=== PATIENT | female | born 1975 | race Hispanic/Latino ===

== ENCOUNTER 2020-05-02 11:03 | Emergency (ER) | payer OTHER ==
[~2020-05-02] VITALS: Ht 165.1 cm; Wt 78.0 kg
[~2020-05-02 11:03] MED LIST: BENTYL10 MG PO; CIPRO500 MG PO; LEVAQUIN500 MG PO; METOCLOPRAMIDE10 MG PO; MOTRIN800 MG PO; PREDNISONE10 MG PO; PRILOSEC OTC20 MG PO; ULTRAM50 MG PO; VICODIN 5-5001 EACH PO; ZOFRAN ODT4 MG SL
[2020-05-02] MEDS ORDERED: SODIUM CHLORIDE 0.9% 1000ML 1,000 ML IV STA (11:19)
[2020-05-02] MEDS ORDERED: KETOROLAC TROMETHAMINE 30 MG/ML VIAL IV STA (11:19)
[2020-05-02 11:52] LABS: BASOPHILS % 0.4 % (0.0-1.0); EOSINOPHILS # (AUTO) 0.1 (0.0-0.4); EOSINOPHILS % 1.3 % (0.0-6.0); HEMATOCRIT 40.2 % (34.2-44.1); LYMPHOCYTES # (AUTO) 1.8 (1.0-3.2); LYMPHOCYTES % 25.6 % (18.0-39.1); MEAN CORPUSCULAR HGB CONC 32.3 g/dL (31-35); MEAN CORPUSCULAR VOLUME 83.4 fL (81-99); MONOCYTES # (AUTO) 0.4 (0.2-0.8); MONOCYTES % 5.6 % (4.4-11.3); NEUTROPHILS # (AUTO) 4.7 (2.1-6.9); PLATELET COUNT 164 x10e3/uL (140-360); RED BLOOD COUNT 4.82 x10e6/uL (3.6-5.1); RED CELL DISTRIBUTION WIDTH 14.6 % (11.7-14.4)
[2020-05-02 12:07] LABS: INR 0.91; PROTHROMBIN TIME 12.8 seconds (11.9-14.5)
[2020-05-02 12:08] LABS: PARTIAL THROMBOPLASTIN TIME 29.4 seconds (23.8-35.5)
[2020-05-02 12:15] LABS: ALANINE AMINOTRANSFERASE 16 IU/L (0-55); ALBUMIN 3.6 g/dL (3.5-5.0); ALBUMIN/GLOBULIN RATIO 0.8 (0.8-2.0); ALKALINE PHOSPHATASE 85 IU/L (40-150); ANION GAP 12.8 mmol/L (8-16); BLOOD UREA NITROGEN 15 mg/dL (7-26); BUN/CREATININE RATIO 18 (6-25); CARBON DIOXIDE 24 mmol/L (22-29); CHLORIDE 106 mmol/L (98-107); CREATINE KINASE 46 IU/L (29-168); CREATININE, SERUM 0.84 mg/dL (0.57-1.11); EST GLOMERULAR FILTRATION RATE > 60 ML/MIN (60-); GLUCOSE 106 mg/dL (74-118); POTASSIUM 3.8 mmol/L (3.5-5.1); SODIUM 139 mmol/L (136-145)
--- NOTE | 2020-05-02 12:16 | Diagnostic Imaging Report ---
EXAMINATION: CHEST SINGLE (PORTABLE) INDICATION: Chest pain COMPARISON: None FINDINGS: LINES/TUBES:None LUNGS:The lungs are well-inflated. No focal consolidation or pulmonary edema. PLEURA:No pleural effusion or pneumothorax. MEDIASTINUM:The cardiomediastinal silhouette appears normal in size and shape. BONES/SOFT TISSUES:No acute osseous injury. ABDOMEN:No free air under the diaphragm. IMPRESSION: No focal pneumonia or pulmonary edema. Signed by: Barbara Lopes MD on 05/02/2020 12:12 PM
--- NOTE | 2020-05-02 12:23 | Emergency Department Note ---
History of Present Illnes History of Present Illness Chief Complaint: Chest Pain History of Present Illness This is a 45 year old female PATIENT IN FROM HOME WITH COMPLAINTS OF LE FT SIDED CHEST PAIN X 5 DAYS, INITIALLY WAS INTERMITTENT NOW CONSTANT X 2 DAYS; STATES PAIN WORSE WITH MOVEMENT, MORE PAINFUL WITH PALPATION. PATIENT ALERT AND ORIENTED, RESP EVEN AND NONLABORED, APPEARS IN NO DISTRESS, RATES PAIN 5/10. Historian: Patient Arrival Mode: Car Relocation Manager Required: No Onset (how long ago): day(s) (5) Location: LEFT CHEST Quality: SHARP Radiation: Reports non-radiation Severity: moderate Onset quality: gradual Timing of current episode: constant Chronicity: new Context: Denies recent illness Relieving factors: none Exacerbating factors: none Associated symptoms: Reports denies other symptoms Treatments prior to arrival: none Past Medical/Family History Physician Review I have reviewed the patient's past medical and family history. Any updates have been documented here. Past Medical History Recent Fever: No Clinical Suspicion of Infectio: No New/Unexplained Change in Ment: No Past Medical History: GERD Other Medical History: REFLUX, COLITIS RHEUMATOID ARTHRITIS Other Surgery: URINARY STENT Social History Smoking Cessation: Never Smoker Counseling Performed: No Alcohol Use: Occasional Any Illegal Drug Use: No TB Exposure/Symptoms: No Physically hurt or threatened: No Family History Family history of heart diseas: Yes Other Last Tetanus: UNK Any Pre-Existing Lines (PICC,: No Review of Systems Review of Systems Constitutional: Reports no symptoms EENTM: Reports no symptoms Cardiovascular: Reports as per HPI Respiratory: Reports no symptoms Gastrointestinal: Reports no symptoms Genitourinary: Reports no symptoms Musculoskeletal: Reports no symptoms Integumentary: Reports no symptoms Neurological: Reports no symptoms Psychological: Reports no symptoms Endocrine: Reports no symptoms Hematological/Lymphatic: Reports no symptoms Physical Exam Related Data Allergies: Coded Allergies: No Known Allergies (Unverified , 06/27/13) Triage Vital Signs Vital Signs Date Time Temp Pulse Resp B/P (MAP) Pulse Ox O2 Delivery O2 Flow Rate FiO2 05/02/20 11:12 97.9 80 16 130/81 99 Room Air Vital signs reviewed: Yes Physical Exam CONSTITUTIONAL Constitutional: Present well-developed, Present well-nourished HENT HENT: Present normocephalic, Present atraumatic, Present oropharynx clear/moist, Present nose normal HENT L/R: Present left ext ear normal, Present right ext ear normal EYES Eyes: Reports PERRL, Reports conjunctivae normal NECK Neck: Present ROM normal PULMONARY Pulmonary: Present effort normal, Present breath sounds normal CARDIOVASCULAR Cardiovascular: Present regular rhythm, Present heart sounds normal, Present capillary refill normal, Present normal rate, Present other (REPRODUCIBLE TENDERNESS LEFT STERNAL BORDER AND LEFT PECTORAL MM) GASTROINTESTINAL Abdominal: Present soft, Present nontender, Present bowel sounds normal GENITOURINARY Genitourinary: Present exam deferred SKIN Skin: Present warm, Present dry MUSCULOSKELETAL Musculoskeletal: Present ROM normal NEUROLOGICAL Neurological: Present alert, Present oriented x 3, Present no gross motor or sensory deficits PSYCHOLOGICAL Psychological: Present mood/affect normal, Present judgement normal Results Laboratory Laboratory Laboratory Tests Test 05/02/20 11:21 Lab results reviewed: Yes Laboratory comments Laboratory Tests Test 05/02/20 11:21 White Blood Count 7.08 x10e3/uL (4.8-10.8) Red Blood Count 4.82 x10e6/uL (3.6-5.1) Hemoglobin 13.0 g/dL (12.0-16.0) Hematocrit 40.2 % (34.2-44.1) Mean Corpuscular Volume 83.4 fL (81-99) Mean Corpuscular Hemoglobin 27.0 pg (28-32) Mean Corpuscular Hemoglobin Concent 32.3 g/dL (31-35) Red Cell Distribution Width 14.6 % (11.7-14.4) Platelet Count 164 x10e3/uL (140-360) Neutrophils (%) (Auto) 67.0 % (38.7-80.0) Lymphocytes (%) (Auto) 25.6 % (18.0-39.1) Monocytes (%) (Auto) 5.6 % (4.4-11.3) Eosinophils (%) (Auto) 1.3 % (0.0-6.0) Basophils (%) (Auto) 0.4 % (0.0-1.0) Neutrophils # (Auto) 4.7 (2.1-6.9) Lymphocytes # (Auto) 1.8 (1.0-3.2) Monocytes # (Auto) 0.4 (0.2-0.8) Eosinophils # (Auto) 0.1 (0.0-0.4) Basophils # (Auto) 0.0 (0.0-0.1) Absolute Immature Granulocyte (auto 0.01 x10e3/uL (0-0.1) Prothrombin Time 12.8 seconds (11.9-14.5) Prothromb Time International Ratio 0.91 Activated Partial Thromboplast Time 29.4 seconds (23.8-35.5) D-Dimer Quantitative (PE/DVT) 375 ng/mL (0-400) Sodium Level 139 mmol/L (136-145) Potassium Level 3.8 mmol/L (3.5-5.1) Chloride Level 106 mmol/L (98-107) Carbon Dioxide Level 24 mmol/L (22-29) Anion Gap 12.8 mmol/L (8-16) Blood Urea Nitrogen 15 mg/dL (7-26) Creatinine 0.84 mg/dL (0.57-1.11) Estimat Glomerular Filtration Rate > 60 ML/MIN (60-) BUN/Creatinine Ratio 18 (6-25) Glucose Level 106 mg/dL (74-118) Calcium Level 9.0 mg/dL (8.4-10.2) Total Bilirubin 0.3 mg/dL (0.2-1.2) Aspartate Amino Transf (AST/SGOT) 13 IU/L (5-34) Alanine Aminotransferase (ALT/SGPT) 16 IU/L (0-55) Alkaline Phosphatase 85 IU/L (40-150) Creatine Kinase 46 IU/L (29-168) Creatine Kinase MB 0.50 ng/mL (0-5.0) Troponin I 0.015 ng/mL (0-0.300) B-Type Natriuretic Peptide 12.0 pg/mL (0-100) Total Protein 8.4 g/dL (6.5-8.1) Albumin 3.6 g/dL (3.5-5.0) Globulin 4.8 g/dL (2.3-3.5) Albumin/Globulin Ratio 0.8 (0.8-2.0) Imaging Imaging results reviewed: Yes Impressions EXAMINATION: CHEST SINGLE (PORTABLE) INDICATION: Chest pain COMPARISON: None FINDINGS: LINES/TUBES:None LUNGS:The lungs are well-inflated. No focal consolidation or pulmonary edema. PLEURA:No pleural effusion or pneumothorax. MEDIASTINUM:The cardiomediastinal silhouette appears normal in size and shape. BONES/SOFT TISSUES:No acute osseous injury. ABDOMEN:No free air under the diaphragm. IMPRESSION: No focal pneumonia or pulmonary edema. Signed by: Barbara Lopes MD on 05/02/2020 12:12 PM Procedures 12 Lead ECG Interpretation ECG Interpretation : ECG: ECG 1 Relocation Manager: Interpreted by ED physician Date: May 02, 2020 Time: 11:18 Rhythm: sinus rhythm Rate: normal (78) QRS axis: normal ST segments normal: Yes T waves normal: Yes Clinical Impression: normal ECG Assessment & Plan Medical Decision Making MDM CBC, CHEM, D-DIMER, BNP, ECG, CXR - R/O STEMI/NSTEMI, PE, CHF, NON-CARDIAC CAUSES, PNEUMONIA Reassessment Reassessment IMPROVED WITH TORADOL Assessment & Plan Final Impression: (1) Chest wall pain Depart Disposition: HOME, SELF-CARE Last Vital Signs Date Time Temp Pulse Resp B/P (MAP) Pulse Ox O2 Delivery O2 Flow Rate FiO2 05/02/20 11:48 72 16 94/55 97 05/02/20 11:12 97.9 Room Air Home Meds Reported Medications Prednisone (PREDNISONE) 10 Mg Tab, 10 MG PO DAILY take two tabs for two days. then take one tab for two days. then stop medication. 07/18/13 Levofloxacin (LEVAQUIN) 500 Mg Tablet, 500 MG PO DAILY 07/18/13 Omeprazole Magnesium (PRILOSEC OTC) 20 Mg Tablet.dr, 20 MG PO DAILY 06/27/13 Medications in the ED Ketorolac Tromethamine 30 mg ONCE STAT IV ; Start 05/02/20 at 11:19; Stop 05/02/20 at 11:24; Status DC Sodium Chloride 1,000 ml @ 0 mls/hr Q0M STAT IV ; Start 05/02/20 at 11:19; Stop 05/02/20 at 11:22; Status DC BRANDEN DHILLON MD May 02, 2020 12:23
== END 2020-05-02 13:02 | disposition home or self-care (01) ==
LOC: ER 11:20
DX: R07.89 Other chest pain (principal); K21.9 Gastro-esophageal reflux disease without esophagitis; M06.9 Rheumatoid arthritis, unspecified
CPT/HCPCS: 36415; 71045; 80053; 82550; 82553; 83880; 84484; 85025; 85379; 85610; 85730; 93005; 99284; J1885; J7030

== ENCOUNTER 2021-12-21 21:05 | Emergency (ER) | payer OTHER ==
[~2021-12-21] VITALS: Ht 165.1 cm; Wt 78.0 kg
[2021-12-21 21:47] LABS: CLARITY,URINE SL CLOUDY (CLEAR); COLOR,URINE YELLOW (YELLOW)
[2021-12-21 21:48] LABS: KETONES,URINE NEGATIVE (NEGATIVE); LEUKOCYTE ESTERASE ,URINE NEGATIVE (NEGATIVE); NITRITE,URINE NEGATIVE (NEGATIVE); PROTEIN,URINE DIPSTICK NEGATIVE (NEGATIVE); URINE UROBILINOGEN 1 mg/dL (0.2 - 1)
[2021-12-21 21:57] LABS: AMORPHOUS SEDIMENT,URINE MODERATE (FEW); BACTERIA,URINE MODERATE /HPF; EPITHELIAL CELLS,URINE MODERATE /LPF; RBC,URINE 0-5 /HPF (0-5)
[2021-12-21] MEDS ORDERED: CEPHALEXIN500 MG PO (23:23)
== END 2021-12-21 23:30 | disposition home or self-care (01) ==
LOC: ER 21:15
DX: R30.0 Dysuria (principal); N39.0 Urinary tract infection, site not specified; R10.12 Left upper quadrant pain; K21.9 Gastro-esophageal reflux disease without esophagitis; M06.9 Rheumatoid arthritis, unspecified
CPT/HCPCS: 81001; 93005; 99282

== ENCOUNTER 2022-01-13 19:04 | Emergency (ER) | payer OTHER ==
[~2022-01-13] VITALS: Ht 165.1 cm; Wt 78.0 kg
[~2022-01-13 19:04] MED LIST changes: +CEPHALEXIN500 MG PO
[2022-01-13] MEDS ORDERED: ONDANSETRON HCL INJ 2MG/ML 2ML 2 MG/ML VIAL IV STA (19:16)
[2022-01-13] MEDS ORDERED: SODIUM CHLORIDE 0.9% 1000ML 1,000 ML IV ONE (19:30)
[2022-01-13] MEDS ORDERED: DICYCLOMINE HCL 20 MG/2 ML VIAL IM ONE (19:30)
[2022-01-13 20:01] LABS: BASOPHILS # (AUTO) 0.1 (0.0-0.1); BASOPHILS % 0.9 % (0.0-1.0); EOSINOPHILS # (AUTO) 0.1 (0.0-0.4); EOSINOPHILS % 1.5 % (0.0-6.0); HEMATOCRIT 38.6 % (34.2-44.1); HEMOGLOBIN 12.1 g/dL (12.0-16.0); LYMPHOCYTES # (AUTO) 2.6 (1.0-3.2); LYMPHOCYTES % 32.4 % (18.0-39.1); MEAN CORPUSCULAR HEMOGLOBIN 24.7 pg (28-32); MEAN CORPUSCULAR HGB CONC 31.3 g/dL (31-35); MEAN CORPUSCULAR VOLUME 78.8 fL (81-99); MONOCYTES # (AUTO) 0.8 (0.2-0.8); MONOCYTES % 9.2 % (4.4-11.3); NEUTROPHILS # (AUTO) 4.5 (2.1-6.9); NEUTROPHILS % 55.8 % (38.7-80.0); PLATELET COUNT 220 x10e3/uL (140-360); RED CELL DISTRIBUTION WIDTH 16.9 % (11.7-14.4)
[2022-01-13 20:14] LABS: CLARITY,URINE CLOUDY (CLEAR); COLOR,URINE YELLOW (YELLOW); KETONES,URINE NEGATIVE (NEGATIVE); LEUKOCYTE ESTERASE ,URINE NEGATIVE (NEGATIVE); NITRITE,URINE NEGATIVE (NEGATIVE); PROTEIN,URINE DIPSTICK NEGATIVE (NEGATIVE); URINE UROBILINOGEN 0.2 mg/dL (0.2 - 1)
[2022-01-13 20:18] LABS: ALBUMIN 3.7 g/dL (3.5-5.0); ALBUMIN/GLOBULIN RATIO 0.7 (0.8-2.0); ANION GAP 11.9 mmol/L (8-16); CALCIUM 9.1 mg/dL (8.4-10.2); CREATININE, SERUM 1.06 mg/dL (0.57-1.11); POTASSIUM 3.9 mmol/L (3.5-5.1)
[2022-01-13 20:19] LABS: AMYLASE 61 U/L (25-125); LIPASE 87 U/L (8-78)
[2022-01-13 20:26] LABS: CREATINE KINASE MB 0.7 ng/mL (0-5.0)
[2022-01-13 20:27] LABS: BACTERIA,URINE MANY /HPF
[2022-01-13 20:29] LABS: EPITHELIAL CELLS,URINE MANY /LPF
[2022-01-14] MEDS ORDERED: SODIUM CHLORIDE 0.9% 50ML 50 ML ONE (06:28)
[2022-01-14] MEDS ORDERED: IOPAMIDOL 370 MG/ML 200 ML INFUS..BTL INJ ONE (06:28)
== END 2022-01-13 22:05 | disposition home or self-care (01) ==
LOC: ER 19:13
DX: R10.13 Epigastric pain (principal); N39.0 Urinary tract infection, site not specified; R11.2 Nausea with vomiting, unspecified; R19.7 Diarrhea, unspecified; E03.9 Hypothyroidism, unspecified; K21.9 Gastro-esophageal reflux disease without esophagitis; M06.9 Rheumatoid arthritis, unspecified; Z87.19 Personal history of other diseases of the digestive system
CPT/HCPCS: 36415; 74177; 80053; 81001; 82150; 82550; 82553; 83690; 84484; 84702; 85025; 93005; 99284; C9113; J0500; J2405; J7030; Q9967

== ENCOUNTER 2022-02-16 00:08 | Emergency (ER) | payer OTHER ==
[~2022-02-16] VITALS: Ht 165.1 cm; Wt 78.0 kg
[2022-02-16] MEDS ORDERED: KETOROLAC TROMETHAMINE 30 MG/ML VIAL IV STA (00:22)
[2022-02-16] MEDS ORDERED: ONDANSETRON HCL INJ 2MG/ML 2ML 2 MG/ML VIAL IV STA (00:22)
[2022-02-16 00:55] LABS: BASOPHILS # (AUTO) 0.1 (0.0-0.1); BASOPHILS % 0.5 % (0.0-1.0); EOSINOPHILS # (AUTO) 0.1 (0.0-0.4); EOSINOPHILS % 1.2 % (0.0-6.0); HEMATOCRIT 37.9 % (34.2-44.1); HEMOGLOBIN 12.1 g/dL (12.0-16.0); LYMPHOCYTES # (AUTO) 2.5 (1.0-3.2); LYMPHOCYTES % 27.5 % (18.0-39.1); MEAN CORPUSCULAR HGB CONC 31.9 g/dL (31-35); MEAN CORPUSCULAR VOLUME 78.3 fL (81-99); MONOCYTES # (AUTO) 0.9 (0.2-0.8); MONOCYTES % 9.3 % (4.4-11.3); NEUTROPHILS # (AUTO) 5.6 (2.1-6.9); NEUTROPHILS % 61.3 % (38.7-80.0); PLATELET COUNT 207 x10e3/uL (140-360); RED BLOOD COUNT 4.84 x10e6/uL (3.6-5.1); RED CELL DISTRIBUTION WIDTH 16.4 % (11.7-14.4)
[2022-02-16 01:02] LABS: ANION GAP 11.9 mmol/L (8-16); CALCIUM 8.7 mg/dL (8.4-10.2); CREATININE, SERUM 0.94 mg/dL (0.57-1.11); POTASSIUM 3.9 mmol/L (3.5-5.1)
[2022-02-16 01:12] LABS: CLARITY,URINE SL CLOUDY (CLEAR); COLOR,URINE YELLOW (YELLOW); KETONES,URINE NEGATIVE (NEGATIVE); LEUKOCYTE ESTERASE ,URINE NEGATIVE (NEGATIVE); NITRITE,URINE NEGATIVE (NEGATIVE); PROTEIN,URINE DIPSTICK NEGATIVE (NEGATIVE); URINE UROBILINOGEN 2 mg/dL (0.2 - 1)
[2022-02-16 01:24] LABS: BACTERIA,URINE MODERATE /HPF; EPITHELIAL CELLS,URINE FEW /LPF; MUCUS,URINE MANY (RARE); RBC,URINE 0-5 /HPF (0-5)
[2022-02-16 01:30] LABS: OTHER CRYSTALS,URINE PRESENT
[2022-02-16 03:13] VITALS: BP 116/74
== END 2022-02-16 03:15 | disposition home or self-care (01) ==
LOC: ER 00:19
DX: M54.50 Low back pain, unspecified (principal); N39.0 Urinary tract infection, site not specified; R11.2 Nausea with vomiting, unspecified; R10.12 Left upper quadrant pain; R91.8 Other nonspecific abnormal finding of lung field; E03.9 Hypothyroidism, unspecified; K21.9 Gastro-esophageal reflux disease without esophagitis; M06.9 Rheumatoid arthritis, unspecified; Z98.84 Bariatric surgery status
CPT/HCPCS: 36415; 74176; 80048; 81001; 84702; 85025; 99284; J1885; J2405

== ENCOUNTER 2024-04-12 19:18 | Emergency (ER) | payer OTHER ==
[~2024-04-12] VITALS: Ht 165.1 cm; Wt 104.3 kg
[~2024-04-12 19:18] MED LIST changes: +ATIVAN0.5 MG PO; +CEFDINIR300 MG PO; +FIORICET 50-301 EACH PEG; +LEVOTHYROXINE50 MCG PO; +LIPITOR10 MG PO; +MOTRIN200 MG PO; +NABUMETONE500 MG PO; +PANTOPRAZOLE SO40 MG PO; +TAMIFLU75 MG PO; +TRAZODONE HCL50 MG PO; +ZOLOFT100 MG PO
[2024-04-12 19:40] VITALS: RESP 20
[2024-04-12 19:59] LABS: BASOPHILS # (AUTO) 0.1 (0.0-0.1); BASOPHILS % 0.7 % (0.0-1.0); EOSINOPHILS # (AUTO) 0.1 (0.0-0.4); EOSINOPHILS % 1.6 % (0.0-6.0); HEMATOCRIT 38.2 % (34.2-44.1); LYMPHOCYTES # (AUTO) 1.4 (1.0-3.2); MEAN CORPUSCULAR HEMOGLOBIN 27.7 pg (28-32); MEAN CORPUSCULAR VOLUME 81.3 fL (81-99); MONOCYTES # (AUTO) 0.7 (0.2-0.8); MONOCYTES % 8.7 % (4.4-11.3); NEUTROPHILS # (AUTO) 5.4 (2.1-6.9); NEUTROPHILS % 70.7 % (38.7-80.0); PLATELET COUNT 169 x10e3/uL (140-360); RED CELL DISTRIBUTION WIDTH 15.4 % (11.7-14.4); WHITE BLOOD COUNT 7.61 x10e3/uL (4.8-10.8)
[2024-04-12] MEDS: SODIUM CHLORIDE 0.9% 1000ML 2,000 ML IV STA (20:02)
[2024-04-12] MEDS: ACETAMINOPHEN 325 MG TAB PO ONE (20:03)
[2024-04-12 20:14] LABS: CLARITY,URINE CLEAR (CLEAR); COLOR,URINE YELLOW (YELLOW); GLUCOSE, URINE NEGATIVE (NEGATIVE); KETONES,URINE TRACE (NEGATIVE); LEUKOCYTE ESTERASE ,URINE NEGATIVE (NEGATIVE); NITRITE,URINE NEGATIVE (NEGATIVE); PH,URINE 8.5 (5 - 7); PROTEIN,URINE DIPSTICK TRACE (NEGATIVE); URINE UROBILINOGEN 2 mg/dL (0.2 - 1)
[2024-04-12 20:15] LABS: BILIRUBIN,URINE NEGATIVE (NEGATIVE); PREGNANCY TEST, URINE NEGATIVE (NEGATIVE)
[2024-04-12 20:19] LABS: ALBUMIN 3.8 g/dL (3.5-5.0); ALBUMIN/GLOBULIN RATIO 0.8 (0.8-2.0); ANION GAP 14.6 mmol/L (8-16); BILIRUBIN,TOTAL 0.5 mg/dL (0.2-1.2); CALCIUM 9.1 mg/dL (8.4-10.2); CREATININE, SERUM 1.11 mg/dL (0.57-1.11); POTASSIUM 4.6 mmol/L (3.5-5.1); TOTAL PROTEIN 8.6 g/dL (6.5-8.1)
[2024-04-12 20:21] LABS: AMORPHOUS SEDIMENT,URINE FEW (FEW); BACTERIA,URINE FEW /HPF; EPITHELIAL CELLS,URINE FEW /LPF; WBC,URINE (MAN) 0-5 /HPF (0-5)
[2024-04-12] MEDS: Morphine 4mg INJECTION 4 MG/ML INJ IV STA (22:02)
[2024-04-12] MEDS: ONDANSETRON HCL INJ 2MG/ML 2ML 2 MG/ML VIAL IV STA (22:02)
[2024-04-12 22:05] VITALS: TEMP 99.3
[2024-04-12] MEDS ORDERED: KETOROLAC TROME10 MG PO (23:09)
[2024-04-12] MEDS ORDERED: ONDANSETRON ODT4 MG PO (23:09)
[2024-04-12] MEDS ORDERED: AMOX TR-K CLV1 EAC2 PO (23:09)
[2024-04-12] MEDS ORDERED: KETOROLAC TROMETHAMINE 30 MG/ML VIAL IV STA (23:11)
[2024-04-12 23:30] VITALS: PULSE 82
[2024-04-12] MEDS ORDERED: KETOROLAC TROMETHAMINE 60 MG/2 ML VIAL IM ONE (23:30)
[2024-04-12 23:42] VITALS: BP 111/77; O2SAT 98
[2024-04-14] MEDS ORDERED: ESOMEPRAZOLE MA40 MG PO (00:07)
[2024-04-14] MEDS ORDERED: NEURONTIN100 MG PO (00:07)
[2024-04-14] MEDS ORDERED: TIZANIDINE HCL4 M1 PO (00:07)
== END 2024-04-12 23:44 | disposition home or self-care (01) ==
LOC: ER 19:26
DX: R50.9 Fever, unspecified (principal); R10.31 Right lower quadrant pain; R51.9 Headache, unspecified; R11.2 Nausea with vomiting, unspecified; N20.0 Calculus of kidney; R16.2 Hepatomegaly with splenomegaly, not elsewhere classified; M06.9 Rheumatoid arthritis, unspecified; F41.9 Anxiety disorder, unspecified; K21.9 Gastro-esophageal reflux disease without esophagitis; E03.9 Hypothyroidism, unspecified; Z86.73 Personal history of transient ischemic attack (TIA), and cerebral infarction without residual deficits; Z86.718 Personal history of other venous thrombosis and embolism; Z98.84 Bariatric surgery status
CPT/HCPCS: 36415; 74177; 80053; 81001; 81025; 83605; 83690; 85025; 87040; 99284; J1885; J2270; J2405; J2543; J7030

== ENCOUNTER 2024-04-17 23:29 | Inpatient (IN) | payer OTHER ==
[~2024-04-17] VITALS: Ht 165.1 cm; Wt 104.3 kg
[~2024-04-17 23:29] MED LIST changes: +AMOX TR-K CLV1 EAC2 PO; +ESOMEPRAZOLE MA40 MG PO; +KETOROLAC TROME10 MG PO; +NEURONTIN100 MG PO; +ONDANSETRON ODT4 MG PO; +TIZANIDINE HCL4 M1 PO
[2024-04-17 23:39] VITALS: TEMP 98.7
[2024-04-18] VITALS (11 sets, daily range): BP systolic 129–152; BP diastolic 83–94; PULSE 57–78; RESP 16–20; TEMP 97.7–98.9; O2SAT 97–100
[2024-04-18 00:11] LABS: BASOPHILS % 0.5 % (0.0-1.0); EOSINOPHILS # (AUTO) 0.2 (0.0-0.4); EOSINOPHILS % 2.7 % (0.0-6.0); HEMATOCRIT 35.6 % (34.2-44.1); HEMOGLOBIN 11.9 g/dL (12.0-16.0); LYMPHOCYTES % 25.5 % (18.0-39.1); MEAN CORPUSCULAR HEMOGLOBIN 27.3 pg (28-32); MEAN CORPUSCULAR HGB CONC 33.4 g/dL (31-35); MEAN CORPUSCULAR VOLUME 81.7 fL (81-99); MONOCYTES # (AUTO) 0.7 (0.2-0.8); MONOCYTES % 8.7 % (4.4-11.3); NEUTROPHILS # (AUTO) 4.8 (2.1-6.9); NEUTROPHILS % 62.3 % (38.7-80.0); PLATELET COUNT 158 x10e3/uL (140-360); RED BLOOD COUNT 4.36 x10e6/uL (3.6-5.1); RED CELL DISTRIBUTION WIDTH 15.5 % (11.7-14.4)
[2024-04-18 00:27] LABS: ALANINE AMINOTRANSFERASE 36 IU/L (0-55); ALBUMIN 3.6 g/dL (3.5-5.0); ALBUMIN/GLOBULIN RATIO 0.8 (0.8-2.0); ALKALINE PHOSPHATASE 93 IU/L (40-150); ANION GAP 13.9 mmol/L (8-16); BILIRUBIN,TOTAL 0.4 mg/dL (0.2-1.2); BLOOD UREA NITROGEN 21 mg/dL (7-26); BUN/CREATININE RATIO 22 (6-25); CALCIUM 8.9 mg/dL (8.4-10.2); CARBON DIOXIDE 20 mmol/L (22-29); CHLORIDE 104 mmol/L (98-107); CREATINE KINASE 47 IU/L (29-168); CREATININE, SERUM 0.94 mg/dL (0.57-1.11); EST GLOMERULAR FILTRATION RATE 75 ML/MIN (>=60); GLUCOSE 100 mg/dL (74-118); POTASSIUM 3.9 mmol/L (3.5-5.1); SODIUM 134 mmol/L (136-145)
[2024-04-18 00:33] LABS: TROPONIN I < 0.001 ng/mL (0-0.300)
[2024-04-18] MEDS: LORAZEPAM INJ 2 MG/ML VIAL IV ONE (00:59)
[2024-04-18] MEDS ORDERED: SODIUM CHLORIDE FLUSH 10 ML SYR INJ PRN (01:45)
[2024-04-18] MEDS ORDERED: LORAZEPAM INJ 2 MG/ML VIAL IV PRN (01:45)
[2024-04-18] MEDS ORDERED: TOPIRAMATE25 MG PO (04:29)
[2024-04-18] MEDS ORDERED: CELEBREX200 MG PO (04:29)
[2024-04-18] MEDS ORDERED: RIZATRIPTAN10 MG PO (04:29)
[2024-04-18] MEDS ORDERED: SERTRALINE HCL100 MG PO (04:29)
[2024-04-18] MEDS: ONDANSETRON HCL INJ 2MG/ML 2ML 2 MG/ML VIAL IV PRN (07:55)
[2024-04-18] MEDS: Morphine 2mg Syringe 2 MG/ML SYR IV PRN (07:56)
[2024-04-18] MEDS: ASPIRIN 81 MG ENTERIC COATED PO SCH (07:56)
[2024-04-18 09:17] LABS: CREATINE KINASE 43 IU/L (29-168)
[2024-04-18 09:46] LABS: TROPONIN I < 0.001 ng/mL (0-0.300)
[2024-04-18 18:00] LABS: CREATINE KINASE 37 IU/L (29-168)
[2024-04-18 18:08] LABS: TROPONIN I < 0.001 ng/mL (0-0.300)
[2024-04-19] VITALS (7 sets, daily range): BP systolic 116–134; BP diastolic 82–94; PULSE 62–74; RESP 18–20; TEMP 98.2–98.3; O2SAT 97–100
[2024-04-19 06:33] LABS: CHOL/HDL RATIO 4.1 (3.0-3.6)
[2024-04-19] MEDS: CYCLOBENZAPRINE HCL 10 MG TAB PO ONE (13:48)
[2024-04-19] MEDS ORDERED: TRAZODONE HCL 50 MG TAB PO PRN (14:30)
[2024-04-19] MEDS ORDERED: RIZATRIPTAN BENZOATE 10 MG PO PRN (14:30)
[2024-04-19] MEDS ORDERED: TIZANIDINE HCL 4 MG TAB PO PRN (14:30)
[2024-04-19] MEDS: SERTRALINE HCL 100 MG TAB PO SCH (16:03)
[2024-04-19] MEDS: GABAPENTIN 100 MG CAP PO SCH (16:03)
[2024-04-19] MEDS: LORAZEPAM 0.5 MG TAB PO PRN (16:04)
[2024-04-19] MEDS: OMEPRAZOLE 20 MG CAP PO SCH (16:04)
[2024-04-19] MEDS: CELECOXIB 200 MG CAP PO PRN (16:04)
[2024-04-19] MEDS: ESOMEPRAZOLE MAGNESIUM PO SCH (16:16)
[2024-04-19] MEDS: ATORVASTATIN 40 MG TAB PO SCH (20:33)
[2024-04-20] VITALS: BP 112/77; PULSE 62; RESP 20; TEMP 97.7; O2SAT 96
[2024-04-20 04:00] VITALS: BP 141/88; PULSE 62; RESP 18; TEMP 98.3; O2SAT 100
[2024-04-20] MEDS: PANTOPRAZOLE SOD 40 MG TABEC PO SCH (07:59)
[2024-04-20 08:00] VITALS: BP 132/92; PULSE 66; RESP 18; TEMP 98.2; O2SAT 100
[2024-04-20] MEDS: LEVOTHYROXINE SODIUM 50 MCG TAB PO SCH (08:00)
[2024-04-20] MEDS: TOPIRAMATE 25 MG TAB PO SCH (08:00)
[2024-04-20] MEDS ORDERED: ATORVASTATIN 40 MG TAB PO SCH (09:00)
[2024-04-20 09:02] VITALS: BP 141/88; PULSE 62; RESP 18; TEMP 98.3; O2SAT 100
[2024-04-20] MEDS: CYCLOBENZAPRINE HCL 10 MG TAB PO PRN (11:52)
[2024-04-20 12:43] VITALS: BP 130/89; PULSE 73; RESP 18; TEMP 98.7; O2SAT 99
[2024-04-20] MEDS: LEVOTHYROXINE SODIUM 100 MCG/VIAL IV ONE (13:20)
[2024-04-20 16:00] VITALS: BP 107/61; PULSE 82; RESP 18; TEMP 98.2; O2SAT 98
[2024-04-20] MEDS ORDERED: ASPIRIN EC81 MG PO (17:01)
[2024-04-20] MEDS ORDERED: CYCLOBENZAPRINE10 MG PO (17:01)
[2024-04-20] MEDS ORDERED: SYNTHROID75 MCG PO (17:01)
[2024-04-20] MEDS ORDERED: REGLAN10 MG PO (17:30)
[2024-04-21] MEDS ORDERED: LEVOTHYROXINE SODIUM 75 MCG TAB PO SCH (06:00)
== END 2024-04-20 18:30 | disposition home or self-care (01) | DRG 313 ==
LOC: ER 23:35 → ERHOLD 04-18 01:31 → MED/SURG2 04-18 02:38 → OBSVTOIN 04-20 10:20
PROVIDERS: ADMIT Internal Medicine; ATTEND Internal Medicine
DX: R07.89 Other chest pain (principal); R16.2 Hepatomegaly with splenomegaly, not elsewhere classified; R20.0 Anesthesia of skin; F41.9 Anxiety disorder, unspecified; R51.9 Headache, unspecified; E06.3 Autoimmune thyroiditis; F32.A Depression, unspecified; K21.9 Gastro-esophageal reflux disease without esophagitis; F43.89 Other reactions to severe stress; R22.31 Localized swelling, mass and lump, right upper limb; M06.9 Rheumatoid arthritis, unspecified; Z79.890 Hormone replacement therapy; Z86.73 Personal history of transient ischemic attack (TIA), and cerebral infarction without residual deficits; Z90.49 Acquired absence of other specified parts of digestive tract; Z98.84 Bariatric surgery status; Z88.8 Allergy status to other drugs, medicaments and biological substances
CPT/HCPCS: 36415; 71045; 80053; 80061; 82550; 83036; 84439; 84443; 84484; 85025; 93005; 93306; 94799; 99284; G0378; J2060; J2270; J2405; U0002

== ENCOUNTER 2025-08-15 06:12 | Emergency (ER) | payer OTHER ==
[~2025-08-15] VITALS: Ht 165.1 cm; Wt 103.0 kg
[~2025-08-15 06:12] MED LIST changes: +ASPIRIN EC81 MG PO; +CELEBREX200 MG PO; +CYCLOBENZAPRINE10 MG PO; +REGLAN10 MG PO; +RIZATRIPTAN10 MG PO; +SERTRALINE HCL100 MG PO; +SYNTHROID75 MCG PO; +TOPIRAMATE25 MG PO
[2025-08-15 06:13] VITALS: TEMP 98.2
[2025-08-15 06:52] LABS: BASOPHILS % 0.4 % (0.0-1.0); EOSINOPHILS % 1.9 % (0.0-6.0); LYMPHOCYTES % 27.6 % (18.0-39.1); MONOCYTES % 8.1 % (4.4-11.3); NEUTROPHILS % 61.6 % (38.7-80.0); RED CELL DISTRIBUTION WIDTH 16.4 % (11.7-14.4)
[2025-08-15 07:00] VITALS: PULSE 66; RESP 20; O2SAT 96
[2025-08-15 07:13] LABS: INR 0.95
[2025-08-15] MEDS: SODIUM CHLORIDE 0.9% 1000ML 1,000 ML IV STA (07:13)
[2025-08-15] MEDS: ONDANSETRON HCL INJ 2MG/ML 2ML 2 MG/ML VIAL IV STA (07:13)
[2025-08-15 07:21] LABS: EST GLOMERULAR FILTRATION RATE 89 ML/MIN (>=60)
[2025-08-15] MEDS ORDERED: SODIUM CHLORIDE 0.9% 100 ML ONE (07:36)
[2025-08-15] MEDS ORDERED: IOPAMIDOL 370 MG/ML 100 ML INFUS..BTL INJ ONE (07:36)
[2025-08-15] MEDS ORDERED: MECLIZINE HCL12.5 MG PO (09:26)
[2025-08-15] MEDS ORDERED: ONDANSETRON ODT4 MG PO (09:26)
[2025-08-15] MEDS: MECLIZINE HCL 12.5 MG TAB PO ONE (11:51)
== END 2025-08-15 12:04 | disposition home or self-care (01) ==
LOC: ER 06:21
DX: H81.399 Other peripheral vertigo, unspecified ear (principal); E03.9 Hypothyroidism, unspecified; K21.9 Gastro-esophageal reflux disease without esophagitis; M06.9 Rheumatoid arthritis, unspecified; F41.9 Anxiety disorder, unspecified; Z86.73 Personal history of transient ischemic attack (TIA), and cerebral infarction without residual deficits; Z86.718 Personal history of other venous thrombosis and embolism; Z87.19 Personal history of other diseases of the digestive system; Z87.442 Personal history of urinary calculi
CPT/HCPCS: 36415; 70496; 70498; 71045; 80053; 83735; 84484; 84702; 85025; 85610; 85730; 93005; 99284; J2405; J2470; J7030; J7050; J8597; Q9967